=== PATIENT | female | born 1945 | race Caucasian/White ===

== ENCOUNTER 2016-12-29 09:32 | Day surgery (SDC) | payer MEDICARE, OTHER ==
--- NOTE | ~2016-12-29 | EGD ---
EGD REPORT [facility] [address] [address] NAME: CLARE CEBALLOS : 49 STATUS : REG [facility] [place] PAT#: [id number] AGE: 71 ADM/REG DATE : 12/29/16 MR#: [id number] REPORT SERV DATE: 12/29/16 DICTATED BY: ERIK RODRIGUEZ III DATE: 12/29/16 REPORT STATUS : Draft [facility]: [facility] DATE: 12/29/16 Endoscopy Center Patient Name: Clare Ceballos Date of : 1945 Attending MD: ERIK RODRIGUEZ III, MD Procedure Date No Time: 12/29/2016 Procedure: Upper GI endoscopy Indications: Heartburn Referring MD: Valeri Beverly Medicines: Propofol per Anesthesia Complications: No immediate complications. Procedure: Pre-Anesthesia Assessment: - ASA Grade Assessment: III - A patient with severe systemic disease. After obtaining informed consent, the endoscope was passed under direct vision. Throughout the procedure, the patient's blood pressure, pulse, and oxygen saturations were monitored continuously. The GIF [id number] was introduced through the mouth, and advanced to the third part of duodenum. The upper GI endoscopy was accomplished with ease. The patient tolerated the procedure well. Findings: The examined esophagus was normal. Evidence of a Tiffany fundoplication was found in the cardia. The anastomosis was characterized by healthy appearing mucosa. The examined duodenum was normal. The REEVES capsule with delivery system was introduced through the mouth and advanced into the esophagus, such that the REEVES pH capsule was positioned 29 cm from the incisors, which was 6 cm proximal to the EG junction. The REEVES pH capsule was then deployed and attached to the esophageal mucosa. The delivery system was then withdrawn. Endoscopy was utilized for probe placement and diagnostic evaluation. Impression: - Normal esophagus. - A Tiffany fundoplication was found, anastomosis characterized by healthy appearing mucosa. - Normal examined duodenum. - The REEVES pH capsule was deployed. Recommendation: - Patient has a contact number available for emergencies. The signs and symptoms of potential delayed complications were discussed with the patient. Return to normal activities tomorrow. Written discharge EGD REPORT [address] [address] NAME: CLARE CEBALLOS Alea : 49 STATUS : REG [facility] [place] PAT#: [id number] AGE: 71 ADM/REG DATE : 12/29/16 MR#: [id number] REPORT SERV DATE: 12/29/16 DICTATED BY: ERIK RODRIGUEZ III DATE: 12/29/16 REPORT STATUS : Draft TRANSCRIBED BY: [employer] DATE: 12/29/16 instructions were provided to the patient. - Discharge patient to home. - Return to previous diet. - Continue present medications. Procedure Code(s): --- Professional --- 56637, Esophagogastroduodenoscopy, flexible, transoral; diagnostic, including collection of specimen(s) by brushing or washing, when performed (separate procedure) Diagnosis Code(s): --- Professional --- Z98.89, Other specified postprocedural states R12, Heartburn CPT copyright 2013 [employer]. All rights reserved. The codes documented in this report are preliminary and upon chemical strength tester review may be revised to meet current compliance requirements. ERIK RODRIGUEZ III, MD 12/29/2016 11:03 AM This report has been signed electronically. Number of Addenda: 0 Note Initiated On: 12/29/2016 10:33 AM Scope Withdrawal Time 0 hours 0 minutes 0 seconds [address] [id number]
[~2016-12-29 09:32] MED LIST: ALAVERT10 MG PO; ATIVAN2 MG PO; BEN25 PO; CAL12OSR PO; CALCIUM OR; CALTRA600D PO; CLARIT10 PO; CYANO1000T PO; D.O.S.100 MG PO; DIOV80 PO; EPIPEN0.3 IM; ESTRACE1 MG PO; FERROUS GLUC325 MG PO; GAS-X80 MG PO; IMOD PO; IMODIUM ADV PO; IMU PO; KLOR-CON 1010 MEQ PO; KLOR-CON M2020 MEQ PO; L-LYSINE500 M1 OR; L20 PO; L40 PO; L80 PO; LEVOTHYROXIN100 MCG PO; LINESS PO; LIOR10 PO; LORTAB10 PO; MAGNESIUM OR; MAGNESIUM PO; MAXAIR; MAXAIR AUTOH200 MCG IN; MAXAIR AUTOHALE1 INH INH; MIRALAXPKT PO; MULTIVITAMI1 PO; NEUR100 PO; NEXIUM40 PO; NITROQUICK0.4 MG SL; NORCO1 TAB PO; NTG150 SL; PERCOCET1 TA2 PO; PLAQ200B PO; PR12.5 PO; PR25 PO; PRILO PO; PROTONIX PO; PULMICORT180 MCG INH; SALAGEN5 MG PO; SENTAB PO; T PO; TYLENOL ARTH650 MG PO; V120 PO; VALTREX1 GM PO; VALTREX5 PO; VITAMIN B 12 PO; VITAMIN C500 M3 PO; VITAMIN D PO; VITAMIN D31000 UNIT PO; X5 PO; ZANTAC 150 PO; ZANTAC150 MG PO; ZINC GLUCON50 MG PO; ZINC OR; ZOFRANODT8 PO; ZYRTEC ALLGY10 MG PO; [UNRECOGNIZED DRUG - CODE] PO
== END 2016-12-29 23:59 | disposition home or self-care (01) ==
LOC: DMU 09:32
PROVIDERS: Internal Medicine Gastroenterology
PROC: 0DJ08ZZ Inspection of Upper Intestinal Tract, Via Natural or Artificial Opening Endoscopic (ICD-10-PCS; principal; 2016-12-29 10:30)
DX: R12 Heartburn (principal); I10 Essential (primary) hypertension; J45.909 Unspecified asthma, uncomplicated; G47.33 Obstructive sleep apnea (adult) (pediatric); M19.90 Unspecified osteoarthritis, unspecified site; K21.9 Gastro-esophageal reflux disease without esophagitis; F41.9 Anxiety disorder, unspecified; F32.9 Major depressive disorder, single episode, unspecified; M79.7 Fibromyalgia; D68.62 Lupus anticoagulant syndrome; Z98.890 Other specified postprocedural states
CPT/HCPCS: 91035